=== PATIENT | female | born 1975 | race Caucasian/White ===

== ENCOUNTER → 2024-01-15 08:31 | Outpatient (REF) | payer BC, SELFPAY | LOC: RAD 08:31 | PROVIDERS: ATTENDING PHYSICIAN Nurse Practitioner Adult Health | DX: R10.12 Left upper quadrant pain (principal) | CPT/HCPCS: 74177; Q9967 ==

== ENCOUNTER → 2024-08-26 09:38 | Outpatient (REF) | payer BC, SELFPAY | LOC: HWRAD 09:38 | PROVIDERS: ATTENDING PHYSICIAN Obstetrics & Gynecology; FAMILY PHYSICIAN Family Medicine | DX: Z30.431 Encounter for routine checking of intrauterine contraceptive device (principal) | CPT/HCPCS: 76830; 76856 ==

== ENCOUNTER → 2024-09-01 10:32 | Outpatient (REF) | payer BC, SELFPAY | LOC: HWWDC 10:32 | PROVIDERS: ATTENDING PHYSICIAN Obstetrics & Gynecology | DX: Z12.31 Encounter for screening mammogram for malignant neoplasm of breast (principal) | CPT/HCPCS: 77063; 77067 ==

== ENCOUNTER → 2025-03-03 13:20 | Outpatient (REF) | payer BC, SELFPAY | LOC: RAD 13:20 | PROVIDERS: ATTENDING PHYSICIAN Internal Medicine Endocrinology, Diabetes & Metabolism; FAMILY PHYSICIAN Family Medicine | DX: R22.1 Localized swelling, mass and lump, neck (principal); E03.2 Hypothyroidism due to medicaments and other exogenous substances | CPT/HCPCS: 76536 ==

== ENCOUNTER → 2025-03-08 14:19 | Outpatient (REF) | payer BC, SELFPAY ==
[2025-03-08 14:33] VITALS: BP 135/86; BP_SYST 77
== END ==
LOC: RADI 14:19
PROVIDERS: ATTENDING PHYSICIAN Internal Medicine Endocrinology, Diabetes & Metabolism; FAMILY PHYSICIAN Family Medicine
DX: E04.1 Nontoxic single thyroid nodule (principal)
CPT/HCPCS: 10005; 88173